=== PATIENT | female | born 1960 | race Caucasian/White ===

== ENCOUNTER → 2021-06-12 | Outpatient (CLI) | payer OTHER ==
[~2021-06-12] MED LIST: GABA-585 PO; TIZANIDINE HCL2 M1 PO; TRAM50TA PO
--- NOTE | 2021-06-12 18:13 | RAD ---
EXAM: XR LUMBAR SPINE 2-3V 06/12/2021 10:30 AM CLINICAL INDICATION: Disability determination COMPARISON: None available TECHNIQUE: 2 views of the lumbar spine FINDINGS: There 5 nonrib-bearing lumbar vertebral bodies. There are surgical changes of posterior an d interbody fusion at L4-S1. There is lateral pedicle screws and connecting rods at L4, L5, and S1. N o definite evidence of hardware loosening. Interbody cages are seen at L4-L5 and L5-S1. There is 9 mm retrolisthesis of L3 on L4. Mild levoscoliosis of lumbar spine centered at L3-L4. Mild disc space na rrowing with small anterior osteophyte at L3-L4. Small osteophytes at the remaining disc spaces witho ut significant narrowing. There is a spinal stimulator with leads coursing cranially along the dorsal thoracic canal to at least T9. Cholecystectomy clips are noted. IMPRESSION: 1. Surgical changes of posterior and interbody fusion at L4-S1. 2. Mild degenerative disc disease at the remaining levels, greatest at L3-L4. Mild levoscoliosis and 9 mm retrolisthesis of L3 on L4. 3. Spinal stimulator leads noted. Electronically signed by: Aixa Jackson MD (06/12/2021 6:10 PM) [id number]
--- NOTE | 2021-06-12 18:46 | RAD ---
EXAM: XR CHEST 2V 06/12/2021 10:30 AM CLINICAL INDICATION: Ventilated termination COMPARISON: Chest radiograph 12/05/2015 TECHNIQUE: PA and lateral views of the chest FINDINGS: The heart is normal in size. Lungs are hyperexpanded. There are chronic appearing intersti tial opacities in the right lateral lung base. Probable 1.1 cm partially calcified nodule in the left apex. No pleural effusion or pneumothorax. There is mild S-shaped thoracolumbar scoliosis. Spinal st imulator leads are along the dorsal thoracic canal. IMPRESSION: 1. Hyperexpanded lungs, which can be seen with COPD. 2. Chronic interstitial opacities and possible bronchiectasis in the lateral right lung base. This co uld reflect interstitial lung disease, chronic infection, or scarring. 3. Probable 1.1 cm partially calcified nodule in the left apex. Consider CT of the chest to better ev aluate the nodule and opacities at the right lung base. 3. Thoracal lumbar scoliosis. Electronically signed by: Aixa Jackson MD (06/12/2021 6:44 PM) [id number]
== END ==
LOC: RAD 10:18
PROVIDERS: ATTEND Internal Medicine
DX: Z02.71 Encounter for disability determination (principal); R91.8 Other nonspecific abnormal finding of lung field; M51.36 Other intervertebral disc degeneration, lumbar region; M43.16 Spondylolisthesis, lumbar region; M41.86 Other forms of scoliosis, lumbar region; M48.061 Spinal stenosis, lumbar region without neurogenic claudication; M25.78 Osteophyte, vertebrae; Z90.49 Acquired absence of other specified parts of digestive tract; Z98.1 Arthrodesis status
CPT/HCPCS: 71046; 72100

== ENCOUNTER 2021-06-26 18:14 | Emergency (ER) | payer OTHER ==
[~2021-06-26] VITALS: Ht 180.3 cm; Wt 56.3 kg
[2021-06-26] MEDS ORDERED: ORPHENADRINE CITRATE 60 MG/2 ML VIAL. IM ONE (19:15)
[2021-06-26] MEDS ORDERED: ORPHENADRINE CITRATE 60 MG/2 ML VIAL. IV ONE (19:15)
[2021-06-26] MEDS ORDERED: LIDOCAINE (700MG/PATCH) PATCH. TD SCH (19:30)
--- NOTE | 2021-06-26 19:49 | PHYS DOC ---
Past History Additional Past Medical Histor: chronic back pain (LEE PERSAUD) Past Surgical History: Appendectomy, Cholecystectomy, Hysterectomy, Other Additional Past Surgical Histo: spinal stimulator, back surgery (LEE PERSAUD) Alcohol Use: None (LEE PERSAUD) General Adult EDM: Chief Complaint: BACK PAIN - NO INJURY HPI: HPI: Patient is a 60 year old female with history of chronic back pain who presents with right hip and flank pain. She describes her pain as constant pressure 8/10 and nonradiating. Patient denies any recent injury, trauma or strenuous activity. She took 800 mg ibuprofen about an hour prior to arrival. She states she has intranasal Toradol at home, but was unable to get home to take it. Patient states she is concerned for a "kidney infection," due to the nature of the pressure/pain. (LEE PERSAUD) Review of Systems: Review of Systems: Constitutional: Denies fever or chills Respiratory: Denies cough or shortness of breath Cardiovascular: Denies chest pain or edema GI: Denies abdominal pain, nausea, vomiting, bloody stools or diarrhea : Denies dysuria or hematuria Musculoskeletal: See HPI Integument: Denies rash or other skin lesion Neurologic: Denies headache, focal weakness or sensory changes (LEE PERSAUD) Current Medications: Current Meds: Current Medications Medications (Trade) Dose Ordered Sig/Carlos Alberto Route PRN Reason Start Time Stop Time Status Last Admin Dose Admin Lidocaine (Lidoderm) 1 patch DAILY TD 06/26/21 19:30 06/26/21 19:39 Orphenadrine Citrate (Norflex) 60 mg 1X ONCE IV 06/26/21 19:15 06/26/21 19:16 DC 06/26/21 19:39 Morphine Sulfate (Morphine 2mg Syringe) 2 mg 1X ONCE IV 06/26/21 20:45 06/26/21 21:26 DC 06/26/21 20:45 Ondansetron HCl (Zofran) 4 mg 1X ONCE IVP 06/26/21 21:00 06/26/21 21:26 DC 06/26/21 21:03 (LEE PERSAUD) Allergies: Allergies: Allergies Coded Allergies Type Severity Reaction Last Updated Verified codeine Allergy Unknown 06/26/21 Yes (LEE PERSAUD) Physical Exam: PE: Constitutional: Well developed, well nourished, non-toxic appearance, sits on the edge of the bed hunched over the Culp tray, appears to be in pain. Cardiovascular: Heart rate regular rhythm, no murmur. Lungs & Thorax: Bilateral breath sounds clear to auscultation. Abdomen: Bowel sounds normal, soft, no tenderness, no masses, no pulsatile masses. Skin: Warm, dry, no erythema, no rash. Back: No tenderness, no CVA tenderness. [] Extremities: No tenderness, no cyanosis, no clubbing, ROM intact, no edema. [] Neurologic: Alert and oriented x4, no focal deficits noted, straight leg raise test negative. [] (LEE PERSAUD) Current Patient Data: Labs: Laboratory Tests Test 06/26/21 19:30 06/26/21 20:15 White Blood Count 11.1 x10^3/uL (4.0-11.0) Red Blood Count 4.15 x10^6/uL (3.50-5.40) Hemoglobin 13.8 g/dL (12.0-15.5) Hematocrit 40.5 % (36.0-47.0) Mean Corpuscular Volume 98 fL (79-100) Mean Corpuscular Hemoglobin 33 pg (25-35) Mean Corpuscular Hemoglobin Concent 34 g/dL (31-37) Red Cell Distribution Width 12.6 % (11.5-14.5) Platelet Count 265 x10^3/uL (140-400) Neutrophils (%) (Auto) 73 % (31-73) Lymphocytes (%) (Auto) 18 % (24-48) Monocytes (%) (Auto) 7 % (0-9) Eosinophils (%) (Auto) 2 % (0-3) Basophils (%) (Auto) 0 % (0-3) Neutrophils # (Auto) 8.1 x10^3uL (1.8-7.7) Lymphocytes # (Auto) 2.0 x10^3/uL (1.0-4.8) Monocytes # (Auto) 0.7 x10^3/uL (0.0-1.1) Eosinophils # (Auto) 0.3 x10^3/uL (0.0-0.7) Basophils # (Auto) 0.0 x10^3/uL (0.0-0.2) Sodium Level 139 mmol/L (136-145) Potassium Level 4.5 mmol/L (3.5-5.1) Chloride Level 102 mmol/L (98-107) Carbon Dioxide Level 26 mmol/L (21-32) Anion Gap 11 (6-14) Blood Urea Nitrogen 13 mg/dL (7-20) Creatinine 0.7 mg/dL (0.6-1.0) Estimated GFR (Cockcroft-Gault) 85.6 BUN/Creatinine Ratio 19 (6-20) Glucose Level 91 mg/dL (70-99) Calcium Level 9.4 mg/dL (8.5-10.1) Total Bilirubin 0.8 mg/dL (0.2-1.0) Aspartate Amino Transf (AST/SGOT) 25 U/L (15-37) Alanine Aminotransferase (ALT/SGPT) 23 U/L (14-59) Alkaline Phosphatase 90 U/L (46-116) Total Protein 7.4 g/dL (6.4-8.2) Albumin 4.2 g/dL (3.4-5.0) Albumin/Globulin Ratio 1.3 (1.0-1.7) Urine Collection Type Unknown Urine Color Yellow Urine Clarity Clear Urine pH 7.0 Urine Specific Bison 1.015 Urine Protein Neg (NEG-TRACE) Urine Glucose (UA) Neg mg/dL (NEG) Urine Ketones (Stick) Neg mg/dL (NEG) Urine Blood Large (NEG) Urine Nitrite Neg (NEG) Urine Bilirubin Neg (NEG) Urine Urobilinogen Dipstick 0.2 mg/dL (0.2 mg/dL) Urine Leukocyte Esterase Trace (NEG) Urine RBC 11-20 /HPF (0-2) Urine WBC 5-10 /HPF (0-4) Urine Squamous Epithelial Cells Few /LPF Urine Bacteria Few /HPF (0-FEW) Vital Signs: Vital Signs Date Time Temp Pulse Resp B/P (MAP) Pulse Ox O2 Delivery O2 Flow Rate FiO2 06/26/21 20:45 11 100 06/26/21 18:25 98.1 92 18 144/99 (114) 100 Room Air ([facility]) Labs: Laboratory Tests Test 06/26/21 19:30 06/26/21 20:15 06/26/21 23:10 White Blood Count 11.1 x10^3/uL Red Blood Count 4.15 x10^6/uL Hemoglobin 13.8 g/dL Hematocrit 40.5 % Mean Corpuscular Volume 98 fL Mean Corpuscular Hemoglobin 33 pg Mean Corpuscular Hemoglobin Concent 34 g/dL Red Cell Distribution Width 12.6 % Platelet Count 265 x10^3/uL Neutrophils (%) (Auto) 73 % Lymphocytes (%) (Auto) 18 % Monocytes (%) (Auto) 7 % Eosinophils (%) (Auto) 2 % Basophils (%) (Auto) 0 % Neutrophils # (Auto) 8.1 x10^3uL Lymphocytes # (Auto) 2.0 x10^3/uL Monocytes # (Auto) 0.7 x10^3/uL Eosinophils # (Auto) 0.3 x10^3/uL Basophils # (Auto) 0.0 x10^3/uL Sodium Level 139 mmol/L Potassium Level 4.5 mmol/L Chloride Level 102 mmol/L Carbon Dioxide Level 26 mmol/L Anion Gap 11 Blood Urea Nitrogen 13 mg/dL Creatinine 0.7 mg/dL Estimated GFR (Cockcroft-Gault) 85.6 BUN/Creatinine Ratio 19 Glucose Level 91 mg/dL Calcium Level 9.4 mg/dL Total Bilirubin 0.8 mg/dL Aspartate Amino Transf (AST/SGOT) 25 U/L Alanine Aminotransferase (ALT/SGPT) 23 U/L Alkaline Phosphatase 90 U/L Total Protein 7.4 g/dL Albumin 4.2 g/dL Albumin/Globulin Ratio 1.3 Urine Collection Type Unknown Urine Color Yellow Urine Clarity Clear Urine pH 7.0 Urine Specific Bison 1.015 Urine Protein Neg Urine Glucose (UA) Neg mg/dL Urine Ketones (Stick) Neg mg/dL Urine Blood Large Urine Nitrite Neg Urine Bilirubin Neg Urine Urobilinogen Dipstick 0.2 mg/dL Urine Leukocyte Esterase Trace Urine RBC 11-20 /HPF Urine WBC 5-10 /HPF Urine Squamous Epithelial Cells Few /LPF Urine Bacteria Few /HPF SARS-CoV-2 Antigen (Rapid) Negative Current Medications Medications (Trade) Dose Ordered Sig/Carlos Alberto Route PRN Reason Start Time Stop Time Status Last Admin Dose Admin Orphenadrine Citrate (Norflex) 60 mg 1X ONCE IM 06/26/21 19:15 06/26/21 19:09 DC Lidocaine (Lidoderm) 1 patch DAILY TD 06/26/21 19:30 06/26/21 19:39 Miscellaneous (Lidoderm Patch Removal) 1 ea QHS 06/26/21 21:00 Orphenadrine Citrate (Norflex) 60 mg 1X ONCE IV 06/26/21 19:15 06/26/21 19:16 DC 06/26/21 19:39 Morphine Sulfate (Morphine 2mg Syringe) 2 mg 1X ONCE IV 06/26/21 20:45 06/26/21 21:26 DC 06/26/21 20:45 Ondansetron HCl (Zofran) 4 mg 1X ONCE IVP 06/26/21 21:00 06/26/21 21:26 DC 06/26/21 21:03 Morphine Sulfate (Morphine 2mg Syringe) 2 mg 1X ONCE IV 06/26/21 22:15 06/26/21 22:16 DC 06/26/21 22:15 Hydromorphone HCl (Dilaudid) 1 mg 1X ONCE IVP 06/26/21 23:45 06/26/21 23:46 DC 06/26/21 23:20 Hydromorphone HCl (Dilaudid) 1 mg STK-MED ONCE .ROUTE 06/26/21 23:16 06/26/21 23:17 DC Diphenhydramine HCl (Benadryl) 50 mg 1X ONCE IVP 06/27/21 01:00 06/27/21 01:01 DC 06/27/21 00:55 Tamsulosin HCl (Flomax) 0.4 mg 1X ONCE PO 06/27/21 01:30 06/27/21 01:31 Vital Signs: Vital Signs Date Time Temp Pulse Resp B/P (MAP) Pulse Ox O2 Delivery O2 Flow Rate FiO2 06/26/21 18:25 98.1 92 18 144/99 (114) 100 Room Air Vital Signs Date Time Temp Pulse Resp B/P (MAP) Pulse Ox O2 Delivery O2 Flow Rate FiO2 06/26/21 23:20 18 100 Room Air 06/26/21 18:25 98.1 92 144/99 (114) (IRAIS PRITCHETT DO) Radiology/Procedures: Radiology/Procedures: Right hip 2 views with one view pelvis, abdomen one view. HISTORY: Right hip pain, flank pain Right hip Single view was taken of the pelvis. There is a calcification the pelvis which could be a renal calculus or phlebolith. Patient had lumbar fusion. There is no pelvic fracture. 2 views were taken of the right hip. There is no fracture or osseous abnormality. Abdomen Supine views were taken of the abdomen. There is a calcification adjacent to L4- 5 on the right which could be dystrophic calcification or a renal calculus. Rosario ent had previous lower lumbar fusion. Bowel pattern of the abdomen is unremarkable. Lung bases are clear. IMPRESSION: 1. Possible renal calculus adjacent to L5 on the right. 2. Calcifications in the pelvis probably phlebolith. 3. Negative pelvis. 4. Negative right hip. Electronically signed by: Uir Downing MD (06/26/2021 9:18 PM) [facility] PROCEDURE: CT ABDOMEN PELVIS WO CONTRAST CT abdomen pelvis without contrast. HISTORY: Right flank pain CT abdomen pelvis was done without contrast. There are emphysematous changes in the lung bases. There is peribronchial thickening. There is a mild infiltrate in the lateral right lower lobe. Liver is normal in appearance. Patient's had a cholecystectomy. Spleen is unremarkable. There is no mass or hydronephrosis in the left kidney. There is right hydronephrosis. There is a 7 mm calculus in the proximal ureter. There is a punctate calculus at the lower pole of the right kidney. There is artifacts off the fusion devices in the lower lumbar spine and off the stimulator. There are phleboliths in the pelvis. A distal ureteral calculus is not evident. Patient's had a hysterectomy. Bladder is unremarkable. There is no bowel obstruction. IMPRESSION: 1. 7 x 10 mm calculus in the proximal right ureter with right hydronephrosis. 2. No bowel obstruction. 3. Mildly distended bladder. 4. COPD. 5. Peribronchial thickening with mucus plugging in the right lower lobe with peripheral right lower lobe infiltrate suggesting pneumonia. PQRS Compliance Statement: One or more of the following individualized dose reduction techniques were utilized for this examination: 1. Automated exposure control 2. Adjustment of the mA and/or kV according to patient size 3. Use of iterative reconstruction technique Electronically signed by: Uri Downing MD (06/26/2021 9:23 PM) [facility] Radiology/Procedures: CT abdomen pelvis without contrast. HISTORY: Right flank pain CT abdomen pelvis was done without contrast. There are emphysematous changes in the lung bases. There is peribronchial thickening. There is a mild infiltrate in the lateral right lower lobe. Liver is normal in appearance. Patient's had a cholecystectomy. Spleen is unremarkable. There is no mass or hydronephrosis in the left kidney. There is right hydronephrosis. There is a 7 mm calculus in the proximal ureter. There is a punctate calculus at the lower pole of the right kidney. There is artifacts off the fusion devices in the lower lumbar spine and off the stimulator. There are phleboliths in the pelvis. A distal ureteral calculus is not evident. Patient's had a hysterectomy. Bladder is unremarkable. There is no bowel obstruction. IMPRESSION: 1. 7 x 10 mm calculus in the proximal right ureter with right hydronephrosis. 2. No bowel obstruction. 3. Mildly distended bladder. 4. COPD. 5. Peribronchial thickening with mucus plugging in the right lower lobe with peripheral right lower lobe infiltrate suggesting pneumonia. (IRAIS PRITCHETT DO) Heart Score: C/O Chest Pain: No (LEE PERSAUD) Course & Med Decision Making: Course & Med Decision Making Pertinent Labs and Imaging studies reviewed. (See chart for details) 60-year-old female with history of chronic back pain and prior surgeries presents with right hip/flank pain. Work-up today will include basic labs as well as right hip x-ray and KUB. KUB shows possible large right kidney stone. CT abdomen pelvis plain ordered. Patient has a 7 x 10 mm kidney stone on the right with hydronephrosis and a small punctate kidney stone on the left. Patient will need to be transferred to facility with higher level of care and urology specialist. [facility], [facility] and [facility] were contacted about patient transfer to med/surg with urology. The only available bed is at [facility] with [facility]. Discussed with the patient the hospital location and the fact that this is the only bed available at this time. Patient agrees to be transferred to [facility]. [facility] transfer center called us back and informed us that it was overlooked that the patient would need urology. [facility] does not have urology service available. We will start over and attempting to find placement. [facility] may have placement for the patient possibly tonight or the patient can be put on the wait list for tomorrow. Patient care transferred to Dr. Pritchett at 0100 while awaiting information on acceptance for transfer. (LEE PERSAUD) Course & Med Decision Making I was the Attending physician on the above date of service of this patient. This patient was evaluated, examined, treated, and dispositioned from the emergency department by the mid-level practitioner. I reviewed case and saw patient repeating certain aspects of history and physical exam. I assume complete care of patient after PA shift ended. I spoke with MANAGER TRAFFIC at [facility] who ultimately accepted transfer under the care of Dr. Boucher for urology consultation given large stone with hydronephrosis. She has received IV fluids, pain control in the form of Toradol, and Dilaudid in addition to Flomax. Patient has known tobacco abuse and history of COPD, she is not having an exacerbation and there is no indication for antibiotics despite radiographic finding reported as pneumonia/infiltrate, this is likely atelectasis Electronically signed, Irais Pritchett DO (IRAIS PRITCHETT DO) Ирина Disclaimer: Ирина Disclaimer: This electronic medical record was generated, in whole or in part, using a voice recognition dictation system. (LEE PERSAUD) Departure Departure: Impression: Primary Impression: Hydronephrosis with renal calculous obstruction Disposition: [facility] ([facility]) Admitting Physician: Other (dr boucher) (IRAIS PRITCHETT DO) Condition: STABLE Referrals: EVERETT LEHMAN DO (PCP) LEE PERSAUD Jun 26, 2021 19:49 IRAIS PRITCHETT DO Jun 27, 2021 01:20
[2021-06-26 20:12] LABS: BASO % 0 % (0-3); EOS # 0.3 x10^3/uL (0.0-0.7); EOS % 2 % (0-3); HEMATOCRIT 40.5 % (36.0-47.0); HEMOGLOBIN 13.8 g/dL (12.0-15.5); LYMPH % 18 % (24-48); MEAN CORPUSCULAR HEMOGLOBIN 33 pg (25-35); MEAN CORPUSCULAR HGB CONC 34 g/dL (31-37); MEAN CORPUSCULAR VOLUME 98 fL (79-100); MONO # 0.7 x10^3/uL (0.0-1.1); MONO % 7 % (0-9); NEUT # 8.1 x10^3uL (1.8-7.7); NEUT % 73 % (31-73); PLATELET COUNT 265 x10^3/uL (140-400); RED BLOOD COUNT 4.15 x10^6/uL (3.50-5.40); RED CELL DISTRIBUTION WIDTH 12.6 % (11.5-14.5); WHITE BLOOD COUNT 11.1 x10^3/uL (4.0-11.0)
[2021-06-26 20:14] LABS: CALCIUM 9.4 mg/dL (8.5-10.1); CREATININE 0.7 mg/dL (0.6-1.0); GFR 85.6; POTASSIUM 4.5 mmol/L (3.5-5.1)
[2021-06-26 20:20] LABS: ALBUMIN 4.2 g/dL (3.4-5.0); ALBUMIN/GLOBULIN RATIO 1.3 (1.0-1.7); TOTAL BILIRUBIN 0.8 mg/dL (0.2-1.0); TOTAL PROTEIN 7.4 g/dL (6.4-8.2)
[2021-06-26] MEDS ORDERED: MORPHINE SULFATE 2 MG/ML DISP.SYRIN. IV ONE ×2 (20:45→22:15)
[2021-06-26 20:49] LABS: BILIRUBIN,URINE NEG (NEG); CLARITY,URINE CLEAR; COLOR,URINE YELLOW; GLUCOSE,URINE NEG (NEG); NITRITE,URINE NEG (NEG); UROBILINOGEN,URINE 0.2 mg/dL (0.2 mg/dL)
[2021-06-26 20:50] LABS: BACTERIA,URINE FEW /HPF (0-FEW); SQUAMOUS EPITHELIAL CELL,UR FEW /LPF
[2021-06-26] MEDS ORDERED: PATCH REMOVAL. MC SCH (21:00)
[2021-06-26] MEDS ORDERED: ONDANSETRON PF 4 MG/2 ML VIAL. IVP ONE (21:00)
--- NOTE | 2021-06-26 21:21 | RAD ---
Right hip 2 views with one view pelvis, abdomen one view. HISTORY: Right hip pain, flank pain Right hip Single view was taken of the pelvis. There is a calcification the pelvis which could be a renal calcu candelaria or phlebolith. Patient had lumbar fusion. There is no pelvic fracture. 2 views were taken of the right hip. There is no fracture or osseous abnormality. Abdomen Supine views were taken of the abdomen. There is a calcification adjacent to L4-5 on the right which could be dystrophic calcification or a renal calculus. Patient had previous lower lumbar fusion. Toi l pattern of the abdomen is unremarkable. Lung bases are clear. IMPRESSION: 1. Possible renal calculus adjacent to L5 on the right. 2. Calcifications in the pelvis probably phlebolith. 3. Negative pelvis. 4. Negative right hip. Electronically signed by: Uri Downing MD (06/26/2021 9:18 PM) [facility]
--- NOTE | 2021-06-26 21:26 | RAD ---
CT abdomen pelvis without contrast. HISTORY: Right flank pain CT abdomen pelvis was done without contrast. There are emphysematous changes in the lung bases. There is peribronchial thickening. There is a mild infiltrate in the lateral right lower lobe. Liver is no rmal in appearance. Patient's had a cholecystectomy. Spleen is unremarkable. There is no mass or hydr onephrosis in the left kidney. There is right hydronephrosis. There is a 7 mm calculus in the proxima l ureter. There is a punctate calculus at the lower pole of the right kidney. There is artifacts off the fusion devices in the lower lumbar spine and off the stimulator. There are phleboliths in the pel vis. A distal ureteral calculus is not evident. Patient's had a hysterectomy. Bladder is unremarkable . There is no bowel obstruction. IMPRESSION: 1. 7 x 10 mm calculus in the proximal right ureter with right hydronephrosis. 2. No bowel obstruction. 3. Mildly distended bladder. 4. COPD. 5. Peribronchial thickening with mucus plugging in the right lower lobe with peripheral right lower l obe infiltrate suggesting pneumonia. PQRS Compliance Statement: One or more of the following individualized dose reduction techniques were utilized for this examinat ion: 1. Automated exposure control 2. Adjustment of the mA and/or kV according to patient size 3. Use of iterative reconstruction technique Electronically signed by: Uri Downing MD (06/26/2021 9:23 PM) [facility]
[2021-06-26] MEDS ORDERED: HYDROmorphone PF 1 MG/ML DISP.SYRIN ONE (23:16)
[2021-06-26] MEDS ORDERED: HYDROmorphone PF 1 MG/ML DISP.SYRIN IVP ONE (23:45)
[2021-06-27 00:47] VITALS: BP 143/103
[2021-06-27] MEDS ORDERED: diphenhydrAMINE 50 MG/ML VIAL IVP ONE (01:00)
[2021-06-27] MEDS ORDERED: TAMSULOSIN 0.4 MG CAP.ER.24H. PO ONE (01:30)
[2021-06-27] MEDS ORDERED: KETOROLAC 30 MG/ML VIAL. IVP ONE (02:00)
[2021-06-27] MEDS ORDERED: IV NORMAL SALINE 1,000ML 1,000 ML IV ONE (02:00)
== END 2021-06-27 01:47 | disposition short-term general hospital (02) ==
LOC: ER 18:14
DX: N13.2 Hydronephrosis with renal and ureteral calculous obstruction (principal); Z20.822 Contact with and (suspected) exposure to COVID-19; G89.29 Other chronic pain; M25.551 Pain in right hip; J44.9 Chronic obstructive pulmonary disease, unspecified; N32.89 Other specified disorders of bladder; Z90.89 Acquired absence of other organs; Z90.49 Acquired absence of other specified parts of digestive tract; Z90.710 Acquired absence of both cervix and uterus; Z88.5 Allergy status to narcotic agent
CPT/HCPCS: 36415; 73502; 74018; 74176; 80053; 81001; 85025; 87086; 87426; 96374; 96375; 96376; 99285; C9803; J1170; J1200; J1885; J2270; J2360; J2405; U0003

== ENCOUNTER 2021-06-30 19:08 | Emergency (ER) | payer OTHER ==
[~2021-06-30] VITALS: Ht 180.3 cm; Wt 56.4 kg
[2021-06-30 19:16] VITALS: BP 143/56
[2021-06-30] MEDS ORDERED: MORPHINE SULFATE 4 MG/ML DISP.SYRIN. IV ONE (19:45)
[2021-06-30] MEDS ORDERED: ONDANSETRON PF 4 MG/2 ML VIAL. IVP ONE (19:45)
--- NOTE | 2021-06-30 19:51 | PHYS DOC ---
Past History Past Medical History: Kidney Stones Additional Past Medical Histor: chronic back pain (LEE PERSAUD) Additional Past Surgical Histo: back surgery, DJD, lithotripsy w/ stent R kidney (LEE PERSAUD) Smoking: Cigarettes Alcohol Use: None (LEE PERSAUD) General Adult EDM: Chief Complaint: FLANK PAIN HPI: HPI: Patient is a 60 year old female who presents with right-sided flank pain. Patient rates her pain 10/10 radiating from her right low back across her side to the groin area. She was seen here in the emergency department 4 days ago for an obstructing 7 x 10 mm kidney stone on the right side with hydronephrosis. She was transferred to [facility], with a performed lithotripsy and placed a stent. Patient states that she was discharged to home 2 days ago on . Yesterday, she states she was "fine." This morning around 0300 she began to have renal colic. She has taken her hydrocodone as prescribed since discharge. The pain is now constant and intolerable at home. She is not sure if she has seen any stones/pieces of her stone pass at this point. (LEE PERSAUD) Review of Systems: Review of Systems: Constitutional: Denies fever or chills Respiratory: Denies cough or shortness of breath Cardiovascular: Denies chest pain or edema GI: Denies abdominal pain, nausea, vomiting, bloody stools or diarrhea : Denies dysuria or hematuria Musculoskeletal: See HPI Integument: Denies rash or other skin lesions (LEE PERSAUD) Current Medications: Current Meds: Current Medications Medications (Trade) Dose Ordered Sig/Carlos Alberto Start Time Stop Time Status Last Admin Dose Admin Morphine Sulfate (Morphine 4mg Syringe) 4 mg 1X ONCE 06/30/21 19:45 06/30/21 19:46 06/30/21 19:42 4 MG Ondansetron HCl (Zofran) 8 mg 1X ONCE 06/30/21 19:45 06/30/21 19:46 06/30/21 19:42 8 MG (LEE PERSAUD) Allergies: Allergies: Allergies Coded Allergies Type Severity Reaction Last Updated Verified codeine Allergy Unknown 06/26/21 Yes (LEE PERSAUD) Physical Exam: PE: Constitutional: Well developed, well nourished, non-toxic appearance. Cardiovascular: Heart rate regular rhythm, no murmur. Lungs & Thorax: Bilateral breath sounds clear to auscultation. Abdomen: Bowel sounds normal, soft, no tenderness, no masses, no pulsatile masses. Skin: Warm, dry, no erythema, no rash. Back: No step-offs, no midline tenderness, CVA tenderness appreciated on the right side. Extremities: No tenderness, no cyanosis, no clubbing, ROM intact, no edema. Neurologic: Alert and oriented x4, no focal deficits noted. (LEE PERSAUD) Current Patient Data: Labs: Laboratory Tests Test 06/30/21 19:19 06/30/21 19:30 Urine Collection Type Unknown Urine Color Brown Urine Clarity Turbid Urine pH Urine Specific [place] Urine Protein (NEG-TRACE) Urine Glucose (UA) mg/dL (NEG) Urine Ketones (Stick) mg/dL (NEG) Urine Blood (NEG) Urine Nitrite (NEG) Urine Bilirubin (NEG) Urine Urobilinogen Dipstick mg/dL (0.2 mg/dL) Urine Leukocyte Esterase (NEG) Urine RBC >40 /HPF (0-2) Urine WBC 20-40 /HPF (0-4) Urine Squamous Epithelial Cells Occ /LPF Urine Bacteria Few /HPF (0-FEW) Urine Mucus Slight /LPF White Blood Count 7.7 x10^3/uL (4.0-11.0) Red Blood Count 3.94 x10^6/uL (3.50-5.40) Hemoglobin 12.8 g/dL (12.0-15.5) Hematocrit 38.3 % (36.0-47.0) Mean Corpuscular Volume 97 fL (79-100) Mean Corpuscular Hemoglobin 32 pg (25-35) Mean Corpuscular Hemoglobin Concent 33 g/dL (31-37) Red Cell Distribution Width 12.7 % (11.5-14.5) Platelet Count 271 x10^3/uL (140-400) Neutrophils (%) (Auto) 53 % (31-73) Lymphocytes (%) (Auto) 35 % (24-48) Monocytes (%) (Auto) 8 % (0-9) Eosinophils (%) (Auto) 4 % (0-3) Basophils (%) (Auto) 1 % (0-3) Neutrophils # (Auto) 4.1 x10^3uL (1.8-7.7) Lymphocytes # (Auto) 2.7 x10^3/uL (1.0-4.8) Monocytes # (Auto) 0.6 x10^3/uL (0.0-1.1) Eosinophils # (Auto) 0.3 x10^3/uL (0.0-0.7) Basophils # (Auto) 0.0 x10^3/uL (0.0-0.2) Vital Signs: Vital Signs Date Time Temp Pulse Resp B/P (MAP) Pulse Ox O2 Delivery O2 Flow Rate FiO2 06/30/21 19:16 97.6 95 18 143/56 (85) 100 Room Air (LEE PERSAUD) Radiology/Procedures: Radiology/Procedures: [] (LEE PERSAUD) Heart Score: C/O Chest Pain: No (LEE PERSAUD) Course & Med Decision Making: Course & Med Decision Making Pertinent Labs and Imaging studies reviewed. (See chart for details) Patient is a 60-year-old female who was seen in the emergency department 4 days ago and transferred to [facility] for treatment of an obstructing kidney stone on the right side. She returns today with recurrence of severe right- sided flank pain. Work-up today will include CBC to evaluate white count as well as urinalysis and KUB. Patient reveals that the end of the stent that was placed was taped onto her inner thigh, and she believes that she pulled it at some point going to the bathroom. Call was placed to [facility] for patient transfer for reevaluation, possible revision of her ureteral stent and further care. At this time, they state they are full, but will place her on a waiting list. Until that time, we will attempt to manage the patient's pain, resume Flomax and initiate antibiotic therapy. Patient continues to have pain after administration of 4 mg morphine IV. Patient will be provided with Dilaudid 1 mg IV. Prior to administration of Dilaudid, patient had concern about possibly leaving to go straight to [facility] for treatment. I did have an in-depth conversation with them about the risk and benefit to staying in the department until she is able to be transferred versus signing out and heading directly to the emergency department at [facility]. Patient decided to remain in the department for pain management while awaiting transfer. Shortly after leaving the room, the patient did change her mind and has decided to leave AGAINST MEDICAL ADVICE to go directly to [facility] for further evaluation and treatment. I discussed once more the risks to leaving without monitoring and treatment which are including but not limited to worsening symptoms, worsening pain, permanent disability and . She then signed out of the department. (LEE PERSAUD) Dragon Disclaimer: Dragon Disclaimer: This electronic medical record was generated, in whole or in part, using a voice recognition dictation system. (LEE PERSAUD) Departure Departure: Impression: Primary Impression: S/P ureteral stent placement Additional Impressions: Flank pain Left against medical advice Disposition: 07 LEFT AGAINST MEDICAL ADVICE Condition: GUARDED Referrals: EVERETT LEHMAN DO (PCP) Attending Signature Attending Signature I have participated in the care of this patient and I have reviewed and agree with all pertinent clinical information above including history, exam, and recommendations. (DANY ARREDONDO MD) LEE PERSAUD Jun 30, 2021 19:51 DANY ARREDONDO MD Jul 02, 2021 10:26
[2021-06-30 19:53] LABS: BASO % 1 % (0-3); EOS # 0.3 x10^3/uL (0.0-0.7); EOS % 4 % (0-3); HEMATOCRIT 38.3 % (36.0-47.0); HEMOGLOBIN 12.8 g/dL (12.0-15.5); LYMPH # 2.7 x10^3/uL (1.0-4.8); LYMPH % 35 % (24-48); MEAN CORPUSCULAR HEMOGLOBIN 32 pg (25-35); MEAN CORPUSCULAR HGB CONC 33 g/dL (31-37); MEAN CORPUSCULAR VOLUME 97 fL (79-100); MONO # 0.6 x10^3/uL (0.0-1.1); MONO % 8 % (0-9); NEUT # 4.1 x10^3uL (1.8-7.7); NEUT % 53 % (31-73); PLATELET COUNT 271 x10^3/uL (140-400); RED BLOOD COUNT 3.94 x10^6/uL (3.50-5.40); RED CELL DISTRIBUTION WIDTH 12.7 % (11.5-14.5); WHITE BLOOD COUNT 7.7 x10^3/uL (4.0-11.0)
[2021-06-30] MEDS ORDERED: TAMSULOSIN 0.4 MG CAP.ER.24H. PO ONE ×2 (20:00→20:07)
[2021-06-30 20:08] LABS: CLARITY,URINE TURBID; COLOR,URINE BROWN
[2021-06-30 20:09] LABS: BACTERIA,URINE FEW /HPF (0-FEW); RBC,URINE >40 /HPF (0-2); SQUAMOUS EPITHELIAL CELL,UR OCC /LPF; WBC,URINE 20-40 /HPF (0-4)
[2021-06-30] MEDS ORDERED: IV NORMAL SALINE 50ML 50 ML ONE (20:30)
[2021-06-30] MEDS ORDERED: IV NORMAL SALINE 1,000ML 1,000 ML IV ONE (20:30)
[2021-06-30] MEDS ORDERED: cefTRIAXone SODIUM 1 GM VIAL ONE (20:30)
[2021-06-30] MEDS ORDERED: HYDROmorphone PF 1 MG/ML DISP.SYRIN IVP ONE (21:00)
--- NOTE | 2021-06-30 22:24 | RAD ---
1 view lower abdomen and pelvis History severe right flank pain status post lithotripsy and stent placement Supine AP view abdomen and pelvis 7:48 PM There is a double-J ureteral stent on the right. There is formed stool scattered in the colon. There is a paucity of small bowel gas. There is no free air. There is no obvious free air on this Myoview. There is prior fusion of the lower lumbar spine. IMPRESSION: Constipation. Electronically signed by: Rusty Pelaez III, MD (06/30/2021 10:22 PM) [facility]
== END 2021-06-30 21:10 | disposition left against medical advice (07) ==
LOC: ER 19:08
DX: R10.9 Unspecified abdominal pain (principal); G89.29 Other chronic pain; F17.210 Nicotine dependence, cigarettes, uncomplicated; Z96.0 Presence of urogenital implants; Z87.442 Personal history of urinary calculi; Z88.5 Allergy status to narcotic agent
CPT/HCPCS: 36415; 74018; 81001; 85025; 87086; 96374; 96375; 99284; J1170; J2270; J2405; 99285